=== PATIENT | female | born 1990 | race Caucasian/White ===

== ENCOUNTER 2024-07-26 10:22 | Emergency (ER) | payer BC, MEDICAID, SELFPAY ==
[2024-07-26 10:32] VITALS: BP 160/103; PULSE 71; RESP 18; O2SAT 99
[2024-07-26 10:36] VITALS: TEMP 37.8
--- NOTE | 2024-07-26 10:45 | USCV_ITS ---
Debra Urbano Age: 33 Gender: F : 1990 Exam Date: 07/26/2024 11:09 Ordering Phys: Francoise Williamson Technologist: R Exam Location: [facility] – [place]_ Indication: right arm pain HISTORY: Upper extremity pain. PROCEDURES: Venous duplex imaging was performed in only the right upper extremity. The following venous structures were evaluated: internal jugular vein, subclavian vein, axillary vein, and brachial veins. In addition, the basilic vein, cephalic vein, radial vein, and ulnar vein. FINDINGS: All other veins of the right upper extremity demonstrate normal flow dynamics with no evidence of deep vein thrombosis or superficial thrombophlebitis. CONCLUSIONS No evidence of thrombus of the right upper extremity veins. Joseph Bui MD (Electronically Signed) Final Date: 26 July 2024 17:09 S
--- NOTE | 2024-07-26 10:46 | ED_ITS ---
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 She states she has been in remission since the age of 4 but was told while undergoing treatment she did have a blood clot. 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 She is not on anticoagulation. Patient states a few days ago she began noticing pain to her right upper arm as well as edema. She feels like the pain and swelling has spread distally. She has not noticed any color or temperature changes to the extremity. Denies numbness, tingling, loss of sensation. She is status post hysterectomy and takes intermittent estrogen as she can tolerate. She is not having any lower extremity swelling or calf pain. No shortness of breath or difficulty breathing. Patient states she gets routine surveillance of blood work through her primary care provider annually. MD Complaint: extremity pain and extremity swelling Onset (ago): day(s) Pain Consistency: constant Location: right and upper extremity Radiation: none Relieving factors: nothing Exacerbating factors: nothing Associated symptoms: Reports no associated symptoms; Deny chest pain, fever(s) or rash Context: history of DVT (as a young child while receiving treatment for leukemia) Related Data Home Medications Medication Instructions Recorded Confirmed estradiol 1 mg tablet 1 mg PO DAILY 07/26/24 07/26/24 ibuprofen 200 mg tablet (Advil) 400 mg PO Q6H PRN Pain 07/26/24 07/26/24 multivitamin 1 tab PO DAILY 07/26/24 07/26/24 Allergies Allergy/AdvReac Type Severity Reaction Status Date / Time No Known Allergies Allergy Verified 07/26/24 10:36 Review of Systems 2 Const: Denies: fever(s), chills, body aches, fatigue or malaise Card: Denies: chest pain, syncope, pre-syncope or dyspnea on exertion Resp: Denies: dyspnea or hemoptysis Musc: Reports: extremity pain and extremity swelling; Denies: neck pain, back pain, joint pain, joint swelling, joint redness, joint warmth, muscle cramps or muscle weakness Skin/Breast: Denies: rash Neuro: Denies: numbness in extremities, weakness in extremities or sensory changes Physical Exam 2 Const: COMMON NORMALS: no acute distress, average body habitus, patient oriented x3, no limitations, healthy appearing, alert and well nourished Neck/C-Spine: COMMON NORMALS: no lymphadenopathy GENERAL: Yes normal visual inspection Resp: COMMON NORMALS: normal respiratory effort and clear to auscultation bilaterally AUSCULTATION: clear to auscultation bilaterally Cardio: COMMON NORMALS: regular rate and regular rhythm RATE: regular rate RHYTHM: regular rhythm Extremity: COMMON NORMALS: full ROM, capillary refill normal and no calf tenderness GENERAL: Yes normal exam except as noted RIGHT UPPER EXTREMITY: Yes upper arm, Yes elbow joint and Yes lower arm OTHER: pt has tenderness to volar R upper arm down into forearm; mild edema present; suspicious for DVT; no erythema/warmth/sores/septic arthritis/cellulitis present; full ROM of all joints; radial pulse/cap refill/sensation all normal Neuro: COMMON NORMALS: patient oriented x3, moves all extremities, no focal motor deficits and no sensory deficits noted SENSORIUM/ORIENTATION: Yes alert Skin: COMMON NORMALS: no rashes or lesions noted GENERAL SKIN EXAM: no rashes or lesions noted Course 2 Vital Signs: Vital signs: Vital Signs Temperature 100.0 F H 07/26/24 10:36 Pulse Rate 71 07/26/24 10:32 Respiratory Rate 18 07/26/24 10:32 Blood Pressure 160/103 07/26/24 10:32 Pulse Oximetry 99 07/26/24 10:32 Oxygen Delivery Me thod Room Air 07/26/24 10:32 MDM - Extremity (Nontraumatic) Medical Decision Making Ultrasound of right upper extremity was negative for DVT per Eugene D/US tech. Blood work obtained as patient was concerned given her history of leukemia. This is essentially unremarkable-diff reviewed with Dr. Cardenas. Minor elevations to her LFTs most likely consistent with fatty liver. Will have her follow up with PCP for further evaluation. Return to ED precautions given. Medical Records I reviewed the patient's medical records. Lab Data I reviewed the patient's lab results. 07/26/24 11:26 07/26/24 11:26 Laboratory Results WBC 3.34 10^3/uL (3.29-11.43) 07/26/24 11:26 RBC 5.12 10^6/uL (3.85-5.65) 07/26/24 11:26 Hgb 15.00 g/dL (11.27-16.99) 07/26/24 11:26 Hct 45.2 % (36-47) 07/26/24 11:26 MCV 88.3 fl (85-98) 07/26/24 11:26 MCH 29.3 pg (27-33) 07/26/24 11:26 MCHC 33.2 g/dL (30-55) 07/26/24 11:26 RDW 12.8 % (12.1-15.1) 07/26/24 11:26 Plt Count 258 10^3/cmm (157-399) 07/26/24 11:26 MPV 9.7 fL (7.4-10.4) 07/26/24 11:26 Total Counted 100 (0-100) 07/26/24 11:26 Atypical Lymphs % 2.0 % (0-5) 07/26/24 11:26 Absolute Neutrophils 1.7 10^3/cmm (1.4-6.5) 07/26/24 11:26 Segmented Neutrophils 52 % 07/26/24 11:26 Band Neutrophils 0.0 % 07/26/24 11:26 Absolute Lymphocytes 1.3 10^3/cmm (1.2-3.4) 07/26/24 11:26 Lymphocytes (Manual) 38 % 07/26/24 11:26 Monocytes (Manual) 7.0 % 07/26/24 11:26 Absolute Monocytes 0.2 10^3/cmm (0.1-0.6) 07/26/24 11:26 Eosinophils (Manual) 1 % 07/26/24 11: Absolute Eosinophils 0.0 10^3/cmm (0.0-0.7) 07/26/24 11:26 Basophils (Manual) 0.0 % 07/26/24 11: Absolute Basophils 0.0 10^3/cmm (0.0-0.2) 07/26/24 11:26 Platelet Estimate Normal (Normal) 07/26/24 11:26 Giant Platelets Trace 07/26/24 11:26 Sodium 139 mmol/L (136-145) 07/26/24 11:26 Potassium 4.2 mmol/L (3.5-5.1) 07/26/24 11:26 Chloride 104 mmol/L (98-107) 07/26/24 11:26 Carbon Dioxide 23 mmol/L (22-29) 07/26/24 11:26 Anion Gap 16.2 (5-19) 07/26/24 11:26 BUN 11 mg/dL (6-20) 07/26/24 11:26 Creatinine 0.7 mg/dL (0.5-0.9) 07/26/24 11:26 GFR Calculation 95.8 mL/min (90-130) 07/26/24 11:26 Glucose 103 mg/dL (65-115) 07/26/24 11:26 Calculated Osmolality 288 mOsm/kg (285-295) 07/26/24 11:26 Calcium 9.2 mg/dL (8.5-10.5) 07/26/24 11:26 Total Bilirubin 0.2 mg/dL (0.15-1.2) 07/26/24 11:26 AST 48 U/L (0-32) H 07/26/24 11:26 ALT 78 U/L (0-33) H 07/26/24 11:26 Alkaline Phosphatase 82 U/L (35-105) 07/26/24 11:26 Total Protein 7.0 g/dL (6.6-8.7) 07/26/24 11:26 Albumin 4.3 g/dL (3.5-5.2) 07/26/24 11:26 Globulin 2.7 g/dL (1.3-4.6) 07/26/24 11:26 XR interpretation done by ED provider, pending radiology final review Discharge Plan Discharge Patient Disposition: Home Clinical Impression: Arm pain, right Condition: Stable Prescriptions: No Action estradiol 1 mg Tablet 1 mg PO DAILY Rx Instructions: off 1 week; repeat cycle ibuprofen [Advil] 200 mg Tablet 400 mg PO Q6H PRN (Reason: Pain) multivitamin [Multi-Day] Tablet 1 tab PO DAILY Discharge Orders: Discharge ED (Routine); Ordered 07/26/24 Ordered By: Francoise Williamson Referrals: Jaimee Hooks SUBSTATION MECHANIC [Primary Care Provider] - Activity Restrictions/Additional Instructions: As we discussed, ultrasound imaging of your right upper extremity was unremarkable. Blood work obtained and essentially unremarkable. Please follow- up with your primary care provider so she can review blood work and further evaluate right arm symptoms. Coding Level of Care Code ED Manager Of Procurement for Peyton Chamorro
[2024-07-26 11:38] LABS: Hematocrit 45.2 % (36-47); Mean Corpuscular HGB Conc 33.2 g/dL (30-55); Mean Corpuscular Hemoglobin 29.3 pg (27-33); Mean Corpuscular Volume 88.3 fl (85-98); Mean Platelet Volume 9.7 fL (7.4-10.4); Platelet Count 258 10^3/cmm (157-399); Red Blood Count 5.12 10^6/uL (3.85-5.65); Red Cell Distribution Width 12.8 % (12.1-15.1); White Blood Count 3.34 10^3/uL (3.29-11.43)
[2024-07-26 11:49] LABS: Total Cells Counted 100 (0-100)
[2024-07-26 11:55] LABS: Absolute Neutrophil 1.7 10^3/cmm (1.4-6.5); Absolute Segmented Neutrophil 1.7 10/cmm (1.6-7.1); Eosinophils 1 %; Giant Platelets Trace; Lymphocytes 38 %; Lymphocytes Absolute 1.3 10^3/cmm (1.2-3.4); Monocytes Absolute 0.2 10^3/cmm (0.1-0.6); Platelet Estimate Normal (Normal); Segmented Neutrophils 52 %
[2024-07-26 11:57] LABS: Alanine Aminotransferase 78 U/L (0-33); Albumin Level 4.3 g/dL (3.5-5.2); Alkaline Phosphatase 82 U/L (35-105); Anion Gap 16.2 (5-19); Aspartate Amino Transferase 48 U/L (0-32); Blood Urea Nitrogen 11 mg/dL (6-20); Calcium 9.2 mg/dL (8.5-10.5); Carbon Dioxide 23 mmol/L (22-29); Chloride 104 mmol/L (98-107); Globulin 2.7 g/dL (1.3-4.6); Glomerular Filtration Rate 95.8 mL/min (90-130); Glucose 103 mg/dL (65-115); Osmolality Calculated 288 mOsm/kg (285-295); Potassium 4.2 mmol/L (3.5-5.1); Sodium 139 mmol/L (136-145); Total Bilirubin 0.2 mg/dL (0.15-1.2)
[2024-07-26 12:36] VITALS: BP 157/99; PULSE 80; O2SAT 97
--- NOTE | 2024-07-26 12:44 | ECG_ITS ---
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 Measurements Intervals [place] Rate: 67 P: 48 UT: 181 QRS: 56 QRSD: 86 T: 32 QT: 364 QTc: 386 Interpretive Statements SINUS RHYTHM No previous ECG available for comparison Electronically Signed On 07-26-2024 15:13:46 COOKING CHEF by Sandip Goldsmith M.D. [email or web address]
== END 2024-07-26 12:36 | disposition home or self-care (01) ==
PROVIDERS: Emergency Provider Physician Assistant; Family Provider Nurse Practitioner Family; PCP Nurse Practitioner Family
DX: M79.601 Pain in right arm (principal); Z85.6 Personal history of leukemia
CPT/HCPCS: 36415; 80053; 85007; 85027; 93005; 93971; 99284